=== PATIENT | female | born 1995 | race Caucasian/White ===

== ENCOUNTER 2017-07-19 20:07 | Emergency (ER) | payer OTHER, MEDICAID ==
[2017-07-19 20:15] VITALS: BMI 20.7
--- NOTE | 2017-07-19 20:35 | DR.GENAD ---
HPI - PCP Primary Care Physician: DELL - Complaint/Symptoms Chief Complaint Doctors Comments: Patient presents with complaint of cough and congestion for five days. Chief Complaint:: COUGH, HEADACHE, SORETHROAT Self Treatment fo Chief Complaint: BENADRYL, COUGH CONGESTION - Source History Provided: Patient - Mode of Arrival Mode of Arrival: Ambulatory - Timing Onset of Chief Complaint: 07/16/17 PMH - PMH Past Medical History: Yes Past Medical History: Seizures Past Medical History Comment: WEEKLY ALLERGY SHOTS Past Surgical History: No Surgical History: No History - Family History History of Family Medical Conditions: No (UNKNOWN, ADOPTION) - Social History Does patient currently use any type of tobacco product: No Have you used tobacco products in the last 12 months: No Type of Tobacco Use: None Does any household member use tobacco: No Alcohol Use: None Do you use any recreational Drugs:: No Lives With: Family Lives Where: Home - infectious screening In the last 2 months have you had wt loss of >10#?: NO Have you had fever, night sweats or hemotysis?: No Have you traveled outside the country in the last 6 months?: No Isolation: Standard ROS - Review of Systems Eyes: No Symptoms Reported ENTM: No Symptoms Reported Respiratoy: No Symptoms Reported Cardiovascular: No Symptoms Reported Gastrointestinal/Abdominal: No Symptoms Reported Genitourinary: No Symptoms Reported Neurological: No Symptoms Reported Musculoskeletal: No Symptoms Reported Integumentary: No Symptoms Reported Hematologic/Lymphatic: No Symptoms Reported Endocrine: No Symptoms Reported Psychiatric: No Symptoms Reported All Other Systems: Reviewed and Negative PE - Vital Signs Vitals: Temperature 98.3 F Pulse Rate 98 Respiratory Rate 17 Blood Pressure [Right Arm] 90/55 Blood Pressure [Left Arm] 114/58 Blood Pressure 139/76 O2 Sat by Pulse Oximetry 99 - General Limitations: No Limitations General Appearance: Alert, In No Apparent Distress - Head Head Exam: Normal Inspection, Atraumatic - Eyes Eye exam: Normal Appearance, PERRL, EOMI - ENT ENT Exam: Normal Exam External Ear Exam: Normal External Inspection TM/Canal Exam: Bilateral Normal Nose Exam: Normal Nose Exam Mouth Exam: Normal Inspection Throat Exam: Normal Inspection - Neck Neck Exam: Normal Inspection, Full ROM - Chest Chest Inspection: Normal Inspection - Respiratory Respiratory Exam: Normal Lung Sounds Bilat Respiratory Exam: Bilateral Clear to Auscultation - Cardiovascular Cardiovascular Exam: Regular Rate, Normal Rhythm - Abdominal Exam Abdominal Exam: Normal Inspection Abdominal Tenderness: negative: RUQ, RLQ, LUQ, LLQ, Epigastrium, Suprapubic, Diffuse, Mild, Moderate, Severe, Other - Extremities Extremities Exam: Normal Inspection, Full ROM - Back Back Exam: Normal Inspection - Neurologic Neurological Exam: Alert, Oriented X3, CN II-XII Intact - Psychiatric Psychiatric Exam: Normal Affect, Normal Mood - Skin Skin Exam: Warm, Dry, Intact Course - Reevaluation 1st: Unchanged ROR - Labs Reviewed Laboratory: Streptococcus Screen Negative (NEGATIVE) 07/19/17 20:41 - Diagnosis Discharge Problem: Bronchitis Pharyngitis Qualifiers: Pharyngitis/tonsillitis etiology: other specified organisms Qualified Code(s): J02.8 - Acute pharyngitis due to other specified organisms - Discharge Plan Condition: Stable - Follow ups/Referrals Follow ups/Referrals: EZRA DE LA FUENTE [Primary Care Provider] - 3 days - Instructions
[2017-07-19] MEDS ORDERED: NS 1000 ML 1,000 ML IV ONE (20:37)
[2017-07-19] MEDS ORDERED: NS 1000 ML 1,000 ML ONE (20:41)
[2017-07-19] MEDS ORDERED: ROBITUSSIN AC PO ONE (21:03)
[2017-07-19] MEDS ORDERED: ROBITUSSIN AC ONE (21:05)
[2017-07-19] MEDS ORDERED: ZOFRAN SYRUP 4 MG UDC PO ONE (21:53)
[2017-07-19] MEDS ORDERED: ZOFRAN SYRUP 4 MG UDC ONE (21:55)
[2017-07-19 22:07] VITALS: BP 139/72
== END 2017-07-19 22:06 | disposition home or self-care (01) ==
LOC: ER 20:25
DX: J40 Bronchitis, not specified as acute or chronic (principal); J02.8 Acute pharyngitis due to other specified organisms
CPT/HCPCS: 87070; 87880; 96365; 96374; 99282; 99283; Q0162

== ENCOUNTER 2020-07-22 16:29 | Observation (INO) ==
--- NOTE | 2020-07-22 17:20 | DR.H&P ---
H&P - History & Physical for Day of: H&P Date: 07/22/20 - Chief Complaint Chief Complaint: INTRACTABLE ABDOMINAL PAIN, "STOMACH IS SWELLING", NO BM IN 7 DAYS - History of Present Illness History of Present Illness: PT IS 24 WF DIRECT ADMIT WITH CO INTRACTABLE ABDOMINAL PAIN, NAUSEA, NO BM IN OVER 7 DAYS, R/O OBSTRUCTION. PT WAS SEEN IN ER FOR CONSTIPATION, GIVEN MIRALAX AND TAKEN MOM AND MAGCITRATE WITHOUT ANY STOOL. PT REPORTS PAIN IS 10/10. PT DENIES ANY FEVER OR FLU LIKE SYMPTOMS. PT HAS PMH OF MILD INTELLECT DISORDER AND SEIZURE DISORDER - Past Medical History Past Medical History: Seizures - Past Surgical History Surgical History: No History - Social History Does patient currently use any type of tobacco product: No Have you used tobacco products in the last 12 months: No Type of Tobacco Use: None Does any household member use tobacco: No Alcohol Use: None Drug Use: None Prescription drug monitoring program results: PDMP reviewed and no concerns identified - Medications Home Medications: No Known Drug Allergies Allergy (Verified 07/19/17 20:15) - Review of Systems Constitutional: Chills Eyes: No Symptoms Reported ENT: No Symptoms Reported Respiratory: No Symptoms Reported Gastrointestinal: Nausea, Vomiting, Abdominal Pain, Constipation Genitourinary: No Symptoms Reported Musculoskeletal: No Symptoms Reported Skin: No Symptoms Reported Neurological: No Symptoms Reported - Physical Exam Vital Signs: Blood Pressure [Right Arm] 139/72 Blood Pressure [Left Arm] 114/58 Blood Pressure 139/72 Oriented: Normal Eyes: Normal Ear: Normal Throat: Normal Respiratory: RLL Diminished, LLL Diminished Cardiovascular: Normal : Normal Auscultation: Bowel Sounds: Bruit Palpation: Other (DIFFUSE DISTENTION) Tenderness: Diffuse Skin: Decreased Turgur Musculoskeletal: Normal Psychiatric: Anxiety Affect: Anxious Speech Pattern: Clear, Appropriate - Assessment/Plan (1) Abdominal pain Status: Acute Plan: CBC CMP UA URINE HCG. ABD SERIES, ,NPO. IV HYDRATION, SSE. R/O ABDOMINAL OBSTRUCTION - Allergies Allergies/Adverse Reactions: Allergies Allergy/AdvReac Type Severity Reaction Status Date / Time No Known Drug Allergies Allergy Verified 07/19/17 20:15
--- NOTE | 2020-07-22 17:49 | RAD ---
HISTORYABDOMINAL PAIN, CONSTIPATION Relevant Clinical InformationSTUDYACUTE ABDOMEN SERIESCOMPARISONNoneFINDINGSThe trachea is midline. The cardiac silhouette is [unremarkable]. [The lungs are clear without focal mass or consolidation. There is no effusion or pneumothorax.] [The bony thorax is unremarkable].Flat plate and upright evaluation of the abdomen demonstrates a [normal bowel gas pattern]. There is a normal amount of stool in the colon. There is no pneumoperitoneum. No pathological soft tissue mass or calcification can be observed. The bony structures are grossly intact.IMPRESSION1. [No acute cardiopulmonary disease.]2. [No evidence for acute abdominal pathology identified.]Electronically signed by: GARCÍA SANTIAGO (Jul 22, 2020 17:47:15)
[2020-07-22 17:58] LABS: BASOPHILS % (AUTO) 0.7 % (0.2-1.0); EOSINOPHILS # (AUTO) 0.1 x10^3/uL (0.0-0.2); HEMOGLOBIN 14.4 g/dL (12.0-16.0); LYMPHOCYTES # (AUTO) 1.8 X10^3/uL (1.3-2.9); LYMPHOCYTES % (AUTO) 31.2 % (21.0-51.0); MEAN CORPUSCULAR HGB CONC 34.2 g/dL (33.0-35.0); MEAN CORPUSCULAR VOLUME 84.9 fL (80.0-100.0); MEAN PLATELET VOLUME 8.2 fL (7.4-11.0); MONOCYTES # (AUTO) 0.5 x10^3/uL (0.3-0.8); MONOCYTES % (AUTO) 9.1 % (0.0-13.0); NEUTROPHILS # (AUTO) 3.3 x10^3/uL (2.2-4.8); PLATELET COUNT 216 X10^3/uL (150.0-450.0); RED BLOOD COUNT 4.95 X10^6/uL (3.5-5.4); RED CELL DISTRIBUTION WIDTH 12.8 % (11.6-16.5); WHITE BLOOD COUNT 5.7 X10^3/uL (3.6-10.0)
[2020-07-22 18:09] LABS: ALANINE AMINOTRANSFERASE 19 Units/L (12-78); ALBUMIN 3.8 g/dL (3.4-5.0); ALKALINE PHOSPHATASE 63 Units/L (46-116); ASPARTATE AMINO TRANSFERASE 13 Units/L (15-37); BLOOD UREA NITROGEN 13 mg/dL (7-18); CALCIUM 8.9 mg/dL (8.5-10.1); CARBON DIOXIDE 23.6 mmol/L (21-32); CHLORIDE 106 mmol/L (98-107); CREATININE 1.15 mg/dL (0.55-1.02); SODIUM 141 mmol/L (136-145); TOTAL PROTEIN 7.3 g/dL (6.4-8.2); eGFR NON BLACK RACES > 60 (>60)
[2020-07-22 18:26] LABS: SERUM PREGNANCY TEST, QUAL NEGATIVE <10 mIU/mL
[2020-07-22] MEDS: PROTONIX INJ 40 MG VIAL IVP SCH (18:29)
[2020-07-22] MEDS: NS 1000 ML 1,000 ML IV SCH (18:29)
[2020-07-22 18:39] VITALS: BMI 27.8
[2020-07-22 19:42] LABS: BILIRUBIN,URINE NEGATIVE (NEGATIVE); BLOOD/HEMOGLOBIN,URINE 4+ (NEGATIVE); GLUCOSE, URINE NEGATIVE (NEGATIVE); KETONES,URINE NEGATIVE (NEGATIVE); LEUKOCYTE ESTERASE ,URINE 3+ (NEGATIVE); NITRITES,URINE NEGATIVE (NEGATIVE); PROTEIN,URINE NEGATIVE (NEGATIVE); UROBILINOGEN,URINE NORMAL (NORMAL)
[2020-07-22 19:53] LABS: APPEARANCE,URINE TURBID (CLEAR); COLOR,URINE PALE YELLOW (YELLOW)
[2020-07-22 19:54] LABS: BACTERIA,URINE TRACE /HPF (NEGATIVE); HYALINE CASTS, URINE NUMEROUS /LPF (NEGATIVE); RBC,URINE 0-2 /HPF (0-3); SQUAMOUS EPITHELIAL CELL,UR FEW /HPF (NEGATIVE)
[2020-07-23 05:44] LABS: ALANINE AMINOTRANSFERASE 20 Units/L (12-78); ALBUMIN 3.6 g/dL (3.4-5.0); ALKALINE PHOSPHATASE 62 Units/L (46-116); ASPARTATE AMINO TRANSFERASE 14 Units/L (15-37); BLOOD UREA NITROGEN 10 mg/dL (7-18); CARBON DIOXIDE 21.1 mmol/L (21-32); CHLORIDE 107 mmol/L (98-107); CREATININE 1.07 mg/dL (0.55-1.02); SODIUM 142 mmol/L (136-145); eGFR NON BLACK RACES > 60 (>60)
[2020-07-23 05:57] LABS: BASOPHILS % (AUTO) 0.5 % (0.2-1.0); EOSINOPHILS # (AUTO) 0.1 x10^3/uL (0.0-0.2); EOSINOPHILS % (AUTO) 1.5 % (0.9-2.9); HEMOGLOBIN 14.5 g/dL (12.0-16.0); LYMPHOCYTES # (AUTO) 2.9 X10^3/uL (1.3-2.9); LYMPHOCYTES % (AUTO) 38.3 % (21.0-51.0); MEAN CORPUSCULAR HEMOGLOBIN 29.1 pg (27.0-34.0); MEAN CORPUSCULAR HGB CONC 33.7 g/dL (33.0-35.0); MEAN CORPUSCULAR VOLUME 86.3 fL (80.0-100.0); MEAN PLATELET VOLUME 8.9 fL (7.4-11.0); MONOCYTES # (AUTO) 0.6 x10^3/uL (0.3-0.8); MONOCYTES % (AUTO) 7.9 % (0.0-13.0); NEUTROPHILS # (AUTO) 3.9 x10^3/uL (2.2-4.8); NEUTROPHILS % (AUTO) 51.8 % (42.0-75.0); PLATELET COUNT 216 X10^3/uL (150.0-450.0); RED BLOOD COUNT 4.98 X10^6/uL (3.5-5.4); RED CELL DISTRIBUTION WIDTH 12.9 % (11.6-16.5); WHITE BLOOD COUNT 7.5 X10^3/uL (3.6-10.0)
[2020-07-23] MEDS: NS 1000 ML 1,000 ML IV SCH ×2 (05:59→08:19)
[2020-07-23] MEDS ORDERED: KLOR-CON PO PRN (06:02)
[2020-07-23] MEDS ORDERED: MAGNESIUM SULFATE 1 GRAM/100 mL PREMIX 1 GM/100 ML BAG IV PRN (06:02)
[2020-07-23] MEDS ORDERED: POTASSIUM CHL 40 MEQ/NS 0.45% 500 ML IV PRN (06:02)
[2020-07-23] MEDS ORDERED: K-RIDER 10 MEQ/NS 100 ML 10 MEQ/100 ML BAG IV PRN (06:02)
[2020-07-23] MEDS ORDERED: MICRO K EXTEN CAP 10 MEQ PO PRN (06:02)
[2020-07-23] MEDS ORDERED: K-DUR TAB 20 MEQ PO PRN (06:02)
[2020-07-23] MEDS ORDERED: POTASSIUM CHLORIDE LIQ 20 MEQ UDC PO PRN (06:02)
[2020-07-23] MEDS ORDERED: POTASSIUM CHL 60 MEQ/NS 0.45% 500 ML IV PRN (06:02)
[2020-07-23] MEDS ORDERED: K-DUR TAB 20 MEQ PO ONE (06:12)
[2020-07-23] MEDS ORDERED: TORADOL 15 MG VIAL IVP ONE (08:31)
[2020-07-23] MEDS: PROTONIX INJ 40 MG VIAL IVP SCH (09:47)
[2020-07-23 10:09] LABS: AMYLASE 51 Units/L (25-115); LIPASE 131 Units/L (73-393)
--- NOTE | 2020-07-23 15:54 | CT ---
HISTORYABDOMINAL PAINSTUDYABDOMEN/PELVIS WITH CONCOMPARISONNoneTECHNIQUEMultiple axial images of the abdomen and pelvis were obtained from the lung bases to the pubic symphysis after the administration of 100 cc Omnipaque 350 IV contrast with oral contrast is well. Dose reduction techniques including Automated Exposure Control (AEC) and adjustment of mA and kV were utilized.FINDINGSThe visualized portions of the lung bases are unremarkable . The liver, spleen, pancreas, kidneys, and adrenal glands are unremarkable in their CT appearance. The gallbladder is not visualized and presumed surgically absent. There is mild dilatation of the intrahepatic ducts also consistent with cholecystectomy.. No significant mesenteric lymphadenopathy or stranding can be observed. The abdominal aorta and IVC are normal. There is no aneurysm or retroperitoneal adenopathy. The distal small bowel and colon are well opacified and normal. No free fluid or free air is seen within the abdomen. No bowel wall thickening or bowel dilatation is present. The colon is unremarkable. Specifically, there is no diverticulosis noted within the sigmoid colon. The appendix is not imaged but there are no inflammatory processes seen at the cecal tip. The terminal ileum is normal. The urinary bladder is grossly unremarkable. The uterus and ovaries are normal. The bony structures are grossly intact.IMPRESSIONUnremarkable CT of the abdomen and pelvis.The gallbladder is not visualized and presumed surgically absent.Electronically signed by: NANCY SANTANA (Jul 23, 2020 15:53:07)
[2020-07-23 17:46] VITALS: BP 101/58
== END 2020-07-23 17:40 | disposition home or self-care (01) ==
LOC: ICU
PROVIDERS: ADMIT Internal Medicine; ATTEND Internal Medicine